=== PATIENT | female | born 1975 | race African-American/Black ===

== ENCOUNTER 2018-06-10 18:42 | Emergency (ER) | payer MEDICAID ==
[2018-06-10 18:55] VITALS: BP 132/86
[2018-06-10] MEDS ORDERED: HYDROCODONE/ACETAMINOPHEN 10-325 MG TABLET PO ONE (19:34)
--- NOTE | 2018-06-10 19:34 | ER Document Report ---
ED Medical Screen (RME) - General Chief Complaint: Burn Stated Complaint: BURN Time Seen by Provider: 06/10/18 19:27 Mode of Arrival: Ambulatory Information source: Patient TRAVEL OUTSIDE OF THE [place] IN LAST 30 DAYS: No - HPI Patient complains to provider of: Burn Onset: Other - There is a 43-year-old female that presents for evaluation of a burn from a rahman she suffered while she was attempting to try something. She has a long-standing history of seizures in the past and has had a myriad of injuries related there to. She had a seizure burned her hand on the pain and was subsequently able to return to baseline. Her sister brought her to the emergency room for further evaluation. - Related Data Allergies/Adverse Reactions: No Known Allergies Allergy (Verified 06/10/18 18:45) Past Medical History - General Information source: Patient - Social History Cigarette use (# per day): No Chew tobacco use (# tins/day): No Frequency of alcohol use: None Drug Abuse: None Lives with: Alone Review of Systems - Review of Systems -: Yes All other systems reviewed and negative Physical Exam - Vital signs Vitals: Temp Pulse Resp BP Pulse Ox 97.4 F 100 20 132/86 H 98 06/10/18 18:53 06/10/18 18:53 06/10/18 18:53 06/10/18 18:53 06/10/18 18:53 - General General appearance: Appears well, Alert - HEENT Head: Normocephalic, Atraumatic Eyes: Normal Pupils: PERRL - Respiratory Respiratory status: No respiratory distress Chest status: Nontender Breath sounds: Normal Chest palpation: Normal - Cardiovascular Rhythm: Regular Heart sounds: Normal auscultation Murmur: No - Abdominal Inspection: Normal Distension: No distension Bowel sounds: Normal Tenderness: Nontender Organomegaly: No organomegaly - Extremities General upper extremity: Other - The upper extremities are symmetric at the shoulders, there is normal range of motion at the shoulder, normal range of motion at the elbow, along the volar aspect of the right forearm there is a second-degree burn which extends approximately 30 cm in the length expanding at its widest to 6 cm in length tapering at both ends. There are 2 lines as well near this burn which are each approximately 7 cm in length both are second- degree [place] The total body surface area for this burn is approximately 1%. General lower extremity: Normal inspection, Nontender, Normal color, Normal ROM, Normal temperature, Normal weight bearing. No: Bart's sign - Neurological Neuro grossly intact: Yes Cognition: Normal Orientation: AAOx4 [place] Coma Scale Eye Opening: Spontaneous Hung Coma Scale Verbal: Oriented [place] Coma Scale Motor: Obeys Commands [place] Coma Scale Total: 15 Speech: Normal Motor strength normal: LUE, RUE, LLE, RLE Sensory: Normal - Psychological Associated symptoms: Normal affect, Normal mood Course - Re-evaluation Re-evalutation: 06/10/18 20:15 Is a pleasant woman who presents after a burn she suffered while cooking. She is a long-standing history of seizures in the past and had a seizure today which she associates with her menses. This is not abnormal for her. She has an obvious secondary burn over the right forearm which is non- circumferential. There is no other obvious injury. No inhalational component. We will plan to address this burn and administer analgesia will also update this patient's tetanus. Thermazene,/Silvadene were obtained to address this for antibiosis and analgesia. A nonstick dressing was they are placed over. Thereafter she was discharged home with a course of narcotic prescriptions. She will be discharged home with return precautions and expectant management in the next 2-3 days she is to undergo wound check. - Vital Signs Vital signs: Temp Pulse Resp BP Pulse Ox 97.4 F 100 20 132/86 H 98 06/10/18 18:53 06/10/18 18:53 06/10/18 18:53 06/10/18 18:53 06/10/18 18:53 Doctor's Discharge - Discharge Clinical Impression: Second degree burn, Seizure Condition: Good Disposition: HOME, SELF-CARE Instructions: [place] ([facility]), Oral Narcotic Medication ([facility]), Pain Medication Injection ([facility]), Silvadene Cream ([facility]), Soap Cleansing ([facility]) Additional Instructions: You were seen today in the emergency department for your burn. You have been given a medication to place on the burn. You should use Vaseline gauze over top of the area that is burned when you place the cream on the burn. Use a wrap to cover it thereafter. You need to clean this area with soap and water at least once a day. If you begin to have fevers or chills, cannot move your hand, or pain becomes unbearable you can return to the emergency room. You need to see your doctor in the next 3 days to have your wound checked. Prescriptions: Hydrocodone/Acetaminophen [[place] 5-325 mg Tablet] 1 tab PO Q8H PRN 3 Days #16 tablet PRN Reason: Petrolatum,White [Vaseline Petrolatum Gauze] 1 each TP DAILY 20 Days #20 bandage Silver Sulfadiazine [Silvadene 1% Cream 400 gm] 10 applic TP DAILY #200 jar
[2018-06-10] MEDS ORDERED: DIPH/PERTUSS(ACELL)/TETANUS VAC/PF 0.5 ML SYR (>=10YO) IM ONE (19:35)
[2018-06-10] MEDS ORDERED: SILVER SULFADIAZINE 1% CREAM 400 GM TP PRN (19:36)
== END 2018-06-10 20:00 | disposition home or self-care (01) ==
LOC: ER 18:42
PROC: 2W2CX4Z Dressing of Right Lower Arm using Bandage (ICD-10-PCS; principal; 2018-06-10)
DX: T22.211A Burn of second degree of right forearm, initial encounter (principal); T31.0 Burns involving less than 10% of body surface; X15.3XXA Contact with hot saucepan or skillet, initial encounter; Y93.G1 Activity, food preparation and clean up; R56.9 Unspecified convulsions
CPT/HCPCS: 99283; 90471; 90715; 16020; J3490